=== PATIENT | male | born 1940 | race Caucasian/White ===

== ENCOUNTER 2016-09-08 14:42 | Emergency (ER) | payer MEDICARE, BC ==
[~2016-09-08] VITALS: Ht 200.7 cm; Wt 109.7 kg
[~2016-09-08 14:42] MED LIST: ASPI325T; ATEN1TAB74; CLOP75; CYCL5TAB PO; DARV PO; GABA300 PO; GLUC2.5T7; GLUCTAB; HYDR-2768; LISI40TA; MORP15TA3 PO; NICO250C; PRIN20TA2 PO; SIMV20; TAB-TAB; VITA10002
[2016-09-08 14:55] VITALS: BP 128/65; PULSE 67; RESP 16; TEMP 98.1; O2SAT 96
[2016-09-08] MEDS ORDERED: ACETAMINOPHEN/HYDROcodone 325 MG/10 MG TAB PO ONE (15:15)
[2016-09-08] MEDS ORDERED: ONDANSETRON HCL 4 MG/2 ML VIAL IM ONE (15:15)
[2016-09-08] MEDS ORDERED: MORPHINE SULFATE 4 MG/ML INJ IM ONE (15:15)
--- NOTE | 2016-09-08 15:15 | PD ---
HPI Chief Complaint: Back/ Neck Pain or Injury Time Seen by Provider: 15:10 Travel History International Travel<30 days: No Contact w/Intl Traveler<30days: No Traveled to known affect area: No History of Present Illness HPI 76-year-old male that presents to the ED for evaluation of right-sided neck pain that she's had for 6 months but is worsening for the past couple of weeks. Per patient she's had this pain on and off for 6 months. Per patient usually took something and irregular rate of it. 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 Per patient he has had no issues since he's never had issues with the right side but he states that since for the past couple of weeks she's been having more pain on the right occipital side. He states having history of back problems but never any neck problems. He denies any surgeries to the neck itself other than to the soft tissue secondary to what he calls tumors. He denies any chest pain or shortness of breath. Per patient the pain has become more severe and is 9 out of 10. Per patient he comes and goes. Per patient his been taking acetaminophen and aspirin with minimal relief. He does have allergies to medication: Ambien, oxycodone, sulfa. He denies taking any narcotic pain medications. He is currently visiting from [place] and he will be here for the next couple of weeks. He denies any fevers chills or sweats. Other medical process. No falls. No injuries. At this time that makes her better thoughts what made him come here. PFSH Past Medical History Hx Anticoagulant Therapy: Yes Blood Disorders: No Cancer: No Cardiovascular Problems: Yes (htn on med, [place], triple bypass) High Cholesterol: Yes Chest Pain: Yes Coronary Artery Disease: Yes Diabetes: Yes (type 2) Endocrine: Yes Genitourinary: No Hypertension: Yes Immune Disorder: No Musculoskeletal: Yes Neurologic: No Respiratory: Yes Myocardial Infarction: Yes Sleep Apnea: Yes Thyroid Disease: No Past Surgical History Abdominal Surgery: Yes (HERNIA REPAIR) Body Medical Devices: CARDIAC STENTS Cardiac Surgery: Yes (CABG X3, CAROTID ENDARECTOMY BILAT. STENTS X4, BALLOON.) Coronary Artery Bypass Graft: Yes Coronary Stent: Yes Social History Alcohol Use: No Tobacco Use: No Allergies-Medications (Allergen,Severity, Reaction): Coded Allergies: Ambien (Verified Allergy, Severe, Hallucinations, 09/08/16) Oxycodone (Verified Allergy, Severe, Hallucinations, 09/08/16) Sulfa (Verified Allergy, Unknown, 09/08/16) Reported Meds & Prescriptions Reported Meds & Active Scripts Active Tramadol (Tramadol HCl) 50 Mg Tab 50 Mg PO Q6H PRN Reported Plavix (Clopidogrel Bisulfate) 75 Mg Tab 75 Mg PO DAILY Polyethylene Glycol 3350 Powder (Polyethylene Glycol) 17 Gm Pow 17 Gm PO DAILY Docusate Sodium 100 Mg Cap 100 Mg PO BID Centrum (Multiple Vitamins W/ Minerals) 1 Tab 1 Tab PO DAILY Vitamin D3 (Cholecalciferol) 1,000 Unit Cap 1,000 Units PO DAILY Aspirin 81 Mg Tabdr 81 Mg PO DAILY Atorvastatin (Atorvastatin Calcium) 40 Mg Tab 40 Mg PO HS Lisinopril 20 Mg Tab 20 Mg PO DAILY Eliquis (Apixaban) 2.5 Mg Tab 2.5 Mg PO BID Amlodipine (Amlodipine Besylate) 5 Mg Tab 5 Mg PO DAILY Pantoprazole (Pantoprazole Sodium) 40 Mg Tab 40 Mg PO DAILY Metformin (Metformin HCl) 500 Mg Tab 500 Mg PO BIDPC With meals Review of Systems General / Constitutional: No: Fever, Chills, Weight Gain, Weight Loss, Other Eyes: No: Diploplia, Blurred Vision, Photophobia, Drainage, Redness, Foreign Body Sensation, Pain, Tearing, Blind Spots, Visual changes, Blindness, Other HENT: No: Headaches, Vertigo, Lightheadedness, Sore Throat, Rhinitis, Rhinorrhea, Congestion, Nosebleed, Neck Stiffness, Neck Pain, Masses, Gingival Bleeding, Dental Difficulties, Ear Discharge, Earache, Other Cardiovascular: No: Chest Pain or Discomfort, Palpitations, Irregular Rhythm, Tachycardia, Diaphoresis, Syncope, Dyspnea on exertion, Varicosities, Edema, Cyanosis, Varicosities, Phlebitis, Claudication, Other Respiratory: No: Cough, Shortness of Breath, Wheezing, Sneezing, Orthopnea, Hemoptysis, Stridor, Night Sweats, Pleuritic Pain, Other Gastrointestinal: No: Nausea, Vomiting, Diarrhea, Abdominal Pain, Hematemesis, Hematochezia, Constipation, Changes in Bowel Habits, Indigestion, Dysphagia, Loss of Appetite, Other Genitourinary: No: Urgency, Frequency, Dysuria, Nocturia, Hematuria, Decreased Urinary Output, Oliguria, Hesitancy, Dribbling, Incontinence, Pelvic Pain, Flank Pain, Dyspareunia, Discharge, Dysmenorrhea, Menorrhagia, Metorrhagia, Vaginal Bleeding, Other Musculoskeletal: Positive: Pain, No: Myalgias, Arthralgias, Limited ROM, Weakness, Cramping, Edema, Atrophy, Other Skin: No Rash, No Itching, No Dryness, No Lumps, No Hives, No Change in Pigmentation, No Change in nails, No Alopecia, No Lesions, No Breast Lumps, No Breast Tenderness, No Breast Swelling, No Other Neurologic: No: Weakness, Dizziness, Syncope, Focal Abnormalities, Coordination Problem, Tremor, Ataxia, Headache, Change in Mentation, Slurred Speech, Paresthesia, Incontinence, Seizures, Sensory Disturbance, Other Psychiatric: No: Anxiety, Depression, Suicidal Ideations, Disorder of Thought, Mood Disorder, Substance Abuse, Homicidal Ideation, Other Endocrine: No: Heat Intolerance, Cold Intolerance, Polyuria, Polydipsia, Other Hematologic/Lymphatic: No: Easy Bruising, Lymph Node Enlargement, Other Physical Exam Narrative GENERAL: SKIN: Warm and dry. HEAD: Atraumatic. Normocephalic. EYES: Pupils equal and round. No scleral icterus. No injection or drainage. ENT: No nasal bleeding or discharge. Mucous membranes pink and moist. Tongue is midline, no uvula deviation. NECK: Trachea midline. No JVD. CARDIOVASCULAR: Regular rate and rhythm. No murmurs, S3, S4. RESPIRATORY: No accessory muscle use. Clear to auscultation. Breath sounds equal bilaterally. GASTROINTESTINAL: Abdomen soft, non-tender, nondistended. Hepatic and splenic margins not palpable. MUSCULOSKELETAL: Extremities without clubbing, cyanosis, or edema. No obvious deformities. Full range of motion of the upper and lower extremities bilaterally. 2+ pulses bilaterally. No obvious cervical, thoracic, lumbar spine tenderness to palpation. Patient does have possible inflamed lymph node on the right occipital neck. No rash or deformity noted. Area where he complains of pain has no obvious deformity. NEUROLOGICAL: Awake and alert. No obvious cranial nerve deficits. Motor grossly within normal limits. Five out of 5 muscle strength in the arms and legs. Normal speech. PSYCHIATRIC: Appropriate mood and affect; insight and judgment normal. Data Data Last Documented VS Vital Signs Date Time Temp Pulse Resp B/P Pulse Ox O2 Delivery O2 Flow Rate FiO2 09/08/16 14:55 98.1 67 16 128/65 96 Orders Acetamin-Hydrocod 325-10 Mg ([place] 10-32 (09/08/16 15:15) Ct Cerv Spine W/O Contrast (09/08/16 ) Morphine Inj (Morphine Inj) (09/08/16 15:15) Ondansetron Inj (Zofran Inj) (09/08/16 15:15) MDM Medical Decision Making Medical Screen Exam Complete: Yes Emergency Medical Condition: Yes Medical Record Reviewed: Yes Interpretation(s) CT of the cervical spine was negative. Differential Diagnosis Fracture versus muscular skeletal pain versus muscle strain versus herniated disc versus mass versus acute on chronic pain versus chronic pain Narrative Course 76-year-old male that presents to the ED for evaluation of right-sided neck pain. Patient was properly examined and was found to have signs and symptoms consistent with appears to be right-sided neck pain. Unknown Etiology at this time. Patient does have an inflamed lymph node around the area where his complaint of discomfort but no obvious reproducible pain with movement or touch. Patient is neurovascularly intact. CT of cervical spine will be done. Patient was given pain medication that him here. CT showed no sign of acute disease. Patient was for sure. From history and physical this appears to be muscle scale. Possible superficial. CT did not show any sign of soft tissue injury. At this time I recommend trial of tramadol. I recommend warm compresses. Close follow with PCP when he gets home. See ED for any worsening symptoms. Diagnosis Primary Impression: Neck pain Patient Instructions: General Instructions Additional Instructions: Take medications as prescribed. Follow-up with PCP. See ED for any worsening symptoms. Do not drink or drive while taking pain medication. Apply ice or heat as needed for pain Med/Other Pt SpecificInfo: Prescription(s) given Scripts Tramadol 50 Mg Tab50 Mg PO Q6H PRN (PAIN) #20 TAB Ref 0 Prov:Kelli Boggs MD 09/08/16 Disposition: 01 DISCHARGE HOME Condition: Stable Nemesio Lopez Sep 08, 2016 15:14
[2016-09-08] MEDS ORDERED: APIX2.5T PO (15:32)
[2016-09-08] MEDS ORDERED: LISI-515 PO (15:32)
[2016-09-08] MEDS ORDERED: PANT40TA3 PO (15:32)
[2016-09-08] MEDS ORDERED: ASPI1TAB69 PO (15:32)
[2016-09-08] MEDS ORDERED: VITA100036 PO (15:32)
[2016-09-08] MEDS ORDERED: DOCU100C PO (15:32)
[2016-09-08] MEDS ORDERED: MULT-6 PO (15:32)
[2016-09-08] MEDS ORDERED: ATOR40TA16 PO (15:32)
[2016-09-08] MEDS ORDERED: POLY17S PO (15:32)
[2016-09-08] MEDS ORDERED: PLAV75TA29 PO (15:32)
[2016-09-08] MEDS ORDERED: AMLO5TAB2 PO (15:32)
[2016-09-08] MEDS ORDERED: METF500T PO (15:32)
[2016-09-08] MEDS ORDERED: TRAM50TA PO (16:58)
--- NOTE | 2016-09-08 17:05 | RADHPO ---
EXAM DATE/TIME: 09/08/2016 16:24 [facility] COMPARISON: No previous studies available for comparison. INDICATIONS : Posterior neck pain. RADIATION DOSE: 26.51 CTDIvol (mGy) MEDICAL HISTORY : Cardiovascular disease. Hypertension. Diabetes mellitus type 2. SURGICAL HISTORY : CABG ENCOUNTER: Initial ACUITY: 1 day PAIN SCALE: 5/10 LOCATION: posterior neck. TECHNIQUE: Volumetric scanning of the cervical spine was performed. Multiplanar reconstructions i n the sagittal, coronal and oblique axial planes were performed. Using automated exposure control a nd adjustment of the mA and/or kV according to patient size, radiation dose was kept as low as reason ably achievable to obtain optimal diagnostic quality images. FINDINGS: The sagittal reconstructions demonstrate normal alignment and normal prevertebral soft tissues. The d ens is intact and there is a normal atlantoaxial relationship. Degenerative disc changes present at t he C5-6 and C6-7 levels with disc space narrowing and hypertrophic change The axial images demonstrate that the vertebral bodies and posterior elements are intact. The soft ti ssues are within normal limits. There is no evidence of acute fracture or malalignment. Degenerative disc and degenerative joint changes are present. CONCLUSION: Negative trauma CT. Sachin Song MD on September 08, 2016 at 17:02 Board Certified Radiologist. This report was verified electronically.
== END 2016-09-08 17:17 | disposition home or self-care (01) ==
LOC: PHEFT 14:42
DX: M54.2 Cervicalgia (principal); I10 Essential (primary) hypertension; E78.00 Pure hypercholesterolemia, unspecified; E11.9 Type 2 diabetes mellitus without complications; G47.30 Sleep apnea, unspecified; I25.2 Old myocardial infarction; Z79.01 Long term (current) use of anticoagulants; Z79.84 Long term (current) use of oral hypoglycemic drugs; Z95.1 Presence of aortocoronary bypass graft; Z87.39 Personal history of other diseases of the musculoskeletal system and connective tissue; Z86.79 Personal history of other diseases of the circulatory system; Z87.09 Personal history of other diseases of the respiratory system
CPT/HCPCS: 72125